=== PATIENT | female | born 1935 | race Caucasian/White ===

== ENCOUNTER 2016-12-27 17:57 | Emergency (ER) | payer OTHER ==
--- NOTE | 2016-12-27 19:57 | ED CLINICAL REPORT ---
Clinical Report - Physicians/Mid Levels [facility] [address] [place] [address] 12/27/2016 18:00 Patient: GISEL MENDOZA Time Seen: 18:26; initial patient contact, initial documentation, patient care assumed. Arrived- By private vehicle. Historian- patient. HISTORY OF PRESENT ILLNESS Chief Complaint: DYSURIA. This started about 1 weeks ago and still present. The symptoms are described as severe. Modifying factors- worsened by movement, coughing and urination. Not relieved by anything. The patient has had flank pain. No abdominal pain, pelvic pain, vaginal pain, low back pain or urinary frequency. No urgency of urination or hematuria. She has had pain with urination. Similar symptoms previously: Once, milder. Recent medical care: The patient was seen recently in the office. ( saw here pcp on Thursday, dx with uti, given abx, macrobid and pyridium, feels worse, now coughing, 1st uti was about a month ago, given macrobid, uti came right back and now placed on macrobid again, wondering why she was given same abx and not something new). REVIEW OF SYSTEMS No vomiting, diarrhea, difficulty breathing or chest pain. She has had fever (said she had fever and her temp was 97 and 98, explained this was completely normal). She has had a moderate cough productive of scant amounts of white sputum. generalized body aches. All systems otherwise negative, except as recorded above. PAST HISTORY See nurses notes. ( PROBLEMS: UTI - Urinary Tract Infection. Asthma. Hypertension. Hypercholesterolemia. Diabetes Mellitus. --18:22 Raul Sy R.N. Malignant Lymphoma. --18:22 Raul Sy R.N. ADDITIONAL SURGERIES: Hysterectomy. Lumpectomy of breast. --18:22 Raul Sy R.N.). SOCIAL HISTORY Former smoker. No alcohol use or drug use. No recent travel. Is a local resident. FAMILY HISTORY Negative. ADDITIONAL NOTES The nursing notes have been reviewed with agreement regarding the chief complaint, HPI, ROS, PMH and patient medications and allergies. PHYSICAL EXAM Vital Signs: 12/27/2016 18:14 BP: 160/95. HR: 114. RR: 22. O2 saturation: 96%. Temp: 98 F. Pain level now: 04/21. Have been reviewed as abnormal and appear to be correct. Hypertensive. Tachycardic. Respiratory rate normal. Temperature normal. Oxygen saturation normal. Appearance: Alert. Oriented X3. No acute distress. HEENT: Normal external inspection. ENT: Pharynx normal. Neck: Neck supple. CVS: Heart sounds normal. Respiratory: No respiratory distress. Breath sounds normal. Chest nontender. Abdomen: Soft and nontender. No organomegaly. No mass. Mildly obese. Back: Abnormal external inspection. Mild CVA tenderness on the right and left. Skin: Skin warm and dry. Normal skin color. No rash. Normal skin turgor. Extremities: Extremities nontender. No lower extremity edema. Neuro: Oriented X 3. Mood/affect normal. No motor deficit. No sensory deficit. LABS, X-RAYS, AND EKG Laboratory Tests: UA-Culture if indicated: (BRODIE: 12/27/2016 18:35) ( MsgRcvd 12/27/2016 19:23) Final results Test Result Flag Units (Reference) URINE COLOR YELLOW URINE APPEARANCE CLEAR URINE GLUCOSE TRACE (NEGATIVE) URINE BILIRUBIN NEGATIVE (NEGATIVE) URINE KETONE NEGATIVE (NEGATIVE) URINE SPECIFIC GRAVITY <= 1.005 L (1.010-1.030) URINE PH 6.0 (5.0-8.0) URINE PROTEIN 1+ (NEGATIVE) URINE UROBILINOGEN 1.0 EU/dL (0.2-1.0) URINE NITRITE POSITIVE (NEGATIVE) URINE BLOOD 1+ (NEGATIVE) URINE LEUK ESTERASE POSITIVE (NEGATIVE) URINE RBC 1-3 rbc/hpf (0-1) URINE WBC 75-100 wbc/hpf (0-1) URINE EPITHELIAL CELLS 3-5 EPI/hpf (0-5) URINE BACTERIA MODERATE (2+ TO 3+) (NONE SEEN) URINE COMMENT CULTURE INDICATED 1+ MUCUSURINE CULTURES ARE SET-UP BASED ON THE FOLLOWING CRITERIA:POSITIVE NITRITEPOSITIVE LEUKOCYTE ESTERASEGREATER THAN 10 WHITE BLOOD CELLSMODERATE (2+) OR GREATER BACTERIA CBC w Diff: (BRODIE: 12/27/2016 18:45) ( MsgRcvd 12/27/2016 19:40) Final results Test Result Flag Units (Reference) WHITE BLOOD COUNT 23.1 H K/uL (4.5-11.5) RED BLOOD COUNT 4.15 M/uL (4.00-5.20) HEMOGLOBIN 11.9 L gm/dL (12.0-16.0) HEMATOCRIT 37.3 % (36.0-46.0) MEAN CELL VOLUME 90 fL (80-100) MEAN CORPUSCULAR HGB 29 pg (26-34) MEAN CORPUSCULAR HGB CONC 32 g/dL (31-37) RED CELL DISTRIBUTION WIDTH 14.6 % (11.6-14.8) PLATELET COUNT 332 K/uL (150-400) POLY % 69 % (50-75) BAND % 16 H % (0-8) LYMPH 10 L % (25-40) MONO 5 % (3-14) EOSINOPHIL % 0 % (0-4) BASOPHIL % 0 % (0-2) METAMYELOCYTE % 0 % (0-1) MYELOCYTE 0 % (0-1) OTHER CELL TYPE 0 ANISOCYTOSIS 1+ CMP: (BRODIE: 12/27/2016 18:45) ( MsgRcvd 12/27/2016 19:27) Final results Test Result Flag Units (Reference) GLUCOSE 240 H mg/dL (70-110) BUN 22 H mg/dL (7-18) CREATININE 1.3 mg/dL (0.6-1.3) Estimated GFR 42.00 mL/min Estimated GFR- 50.90 mL/min Note: Persistent reduction over 3 months in eGFR<60 mL/min/1.73 m2 defines CKD. Patients with eGFR values>=60 mL/min/1.73 m2 may also have CKD if evidence ofpersistent proteinuria. Additional information may be foundat www.kidney.org. SODIUM 131 L mmol/L (136-145) POTASSIUM 5.1 mmol/L (3.5-5.1) CHLORIDE 96 L mmol/L (98-107) CARBON DIOXIDE 24 mmol/L (21-32) CALCIUM 9.7 mg/dL (8.5-10.1) TOTAL PROTEIN 8.6 H g/dL (6.4-8.2) ALBUMIN 2.7 L g/dL (3.3-5.0) BILIRUBIN, TOTAL 0.7 mg/dL (0.0-1.0) ALKALINE PHOSPHATASE 252 H U/L (46-116) AST (SGOT) 33 U/L (15-37) ALT (SGPT) 39 U/L (12-78) . PROGRESS AND PROCEDURES Course of Care: nurse informing me that pt refused xray because she did not want to stand, nurse asked if we could try portable, order changed results and tx options discussed, pt does not want to be admitted so agreed to try and tx it outpatient first and see pcp thursday, or return sooner if worse. 12/27/2016 19:12 BP: 124/92. HR: 109. O2 saturation: 94%. Pain level now: 8/10. Vital Signs: have been reviewed as abnormal and appear to be correct. Blood pressure normal. Tachycardic. Respiratory rate normal. Temperature normal. Oxygen saturation normal. Patient and family counseled in person regarding the patient's stable condition, test results and diagnosis. Differential Diagnosis: Other possible considerations: uti, pyelo, kidney disease, kidney stone, pneumonia, bronchitis, flu, uri. Above considerations are based on history, physical exam, reassessment, laboratory data and X-Ray data. Differential diagnosis was discussed with patient. Disposition: Discharged home in good and improved condition (19:57). Condition: good and stable. CLINICAL IMPRESSION 12/27/2016 19:58 BP: 124/92. HR: 104. RR: 17. O2 saturation: 97%. Pain level now: 7/10. Vital Signs: have been reviewed as normal and appear to be correct. Pyelonephritis INSTRUCTIONS Warnings: Further evaluation is necessary in order to recheck abnormal lab and assess the possibility of serious illness. It is very important to follow up with a physician. GENERAL WARNINGS: Return or contact your physician immediately if your condition worsens or changes unexpectedly, if not improving as expected, or if other problems arise. Specifically return if problem worsens. Prescription Medications: Zofran 4 mg: Take 1 orally every six hours as needed for nausea/vomiting. Dispense ten (10). No refills. Substitution is permissible. Levaquin 500 mg: take 1 tab orally every day for 7 days. No refills. [place] 5 mg / 325 mg tablets: take 1 to 2 orally every 6 hours as needed for pain. Dispense fifteen (15). No refills. Substitution is permissible. Toradol 10 mg tablets: Take 1 tablet orally every 6 hours as needed. Dispense fifteen (15). No refills. Substitution is permissible. Keflex 500 mg: take 1 capsule orally every 6 hours for 7 days. No refills. Substitution is permissible. Follow-up: Follow up with your doctor Thursday even if well. Call for an appointment. Summary of care provided to patient. Blood pressure screening was not performed during this visit because blood pressure screening was precluded by clinical urgency. Understanding of the discharge instructions verbalized by patient. (Electronically signed by Lorena Alcala A.R.N.P. 12/27/2016 22:38)
--- NOTE | 2016-12-27 19:58 | ED ORDER SUMMARY ---
..... Patient: GISEL MENDOZA OrderSheet [facility] VisitID: [id number] [place] [address] 81y, F Registration Date/Time: 12/27/2016 ORDER SHEET Weight: 75.7 kg (stated) Allergies: PCN, Sulfa Drugs GENERAL ORDERS: Chest 2V Urgent (18:32 12/27/2016 HBivens A.R.N.P.) (Ack 18:33 KHoerner) (19:20 HBivens A.R.N.P.) (Cancelled: Other19:20 HBivens A.R.N.P.) CBC w Diff Urgent (18:32 12/27/2016 HBivens A.R.N.P.) (Ack 18:33 BROOKEoerner) (18:45 MCook R.N.) CMP Urgent (18:32 12/27/2016 HBivens A.R.N.P.) (Ack 18:33 BROOKEoergisela) (18:45 MCook R.N.) UA-Culture if indicated Urgent (18:32 12/27/2016 HBivens A.R.N.P.) (Ack 18:33 BROOKEoerner) (18:45 MCook R.N.) Chest 1V Urgent (19:20 12/27/2016 HBivens A.R.N.P.) (Ack 19:22 AMcQuoid ER Tech1) (19:35 Josee) MEDICATION ORDERS: IV FLUIDS: Toradol IV 30 mg (NOW) (18:32 12/27/2016 HBivens A.R.N.P.) (18:51 MCook R.N.) IV Saline Lock (18:32 12/27/2016 HBivens A.R.N.P.) (18:46 MCook R.N.) IV NS : initial bolus 1000 mL (1000 mL/hr), then none - (NOW) (19:39 12/27/2016 HBivens A.R.N.P.) (Ack 19:46 KPage-Kuchan R.N.) (19:57 KPage-Kuchan R.N.) Levaquin IV 750 mg/150 mL (NOW) (19:39 12/27/2016 HBivens A.R.N.P.) (Ack 19:46 KPage-Kuchan R.N.) (19:58 KPage-Kuchan R.N.) Dilaudid IV 1 mg (HIGH ALERT MEDICATION, NOW) (20:02 12/27/2016 HBivens A.R.N.P.) (Ack 20:03 KPage-Kuchan R.N.) (20:20 KPage-Kuchan R.N.) Zofran IV 4 mg (NOW) (20:02 12/27/2016 HBivens A.R.N.P.) (Ack 20:03 KPage-Kuchan R.N.) (20:20 KPage-Kuchan R.N.) ORDER SHEET NOTES: [Electronically signed by Lorena AlcalaRStephyN.PStephy (22:38 12/27/2016)] [Electronically signed by Ailyn Fitzgerald R.N. (23:57 12/27/2016)] [Electronically locked/signed by Ailyn Fitzgerald R.N. (23:57 12/27/2016)]
--- NOTE | 2016-12-27 19:58 | ED NURSING NOTES ---
Clinical Report - Nurses [facility] [address] [place] [address] 12/27/2016 18:00 Patient: GISEL MENDOZA TRIAGE Triage time 18:14 Dec 27 2016. Acuity: LEVEL 3. Alert. No acute distress. DANIEL COMA SCORE: Daniel Coma Scale: 15- eyes open spontaneously (4); best verbal response- oriented x 4 (5); best motor response- obeys commands (6). --18:24 Raul Sy R.N. 18:14 12/27/16. BP: 160/95. HR: 114. RR: 22. O2 saturation: 96% on room air. Temp: 98 F. Pain level now: 04/21. --18:24 Raul Sy R.N. Chief Complaint: (pain). 19:10. --23:57 Ailyn Fitzgerald R.N. Weight: 75.7 kg stated. Height/Length: 66 inches Per Patient. BMI: 26.9. --18:13 Raul Sy R.N. Medications Pyridium Oral. --18:18 Raul Sy R.N. Nitrofurantoin Oral. --18:18 Raul Sy R.N. MetFORMIN HCl Oral. --18:18 Raul Sy R.N. Lisinopril Oral. --18:18 Raul Sy R.N. Lipitor Oral. --18:18 Raul Sy R.N. Glimepiride Oral. --18:19 Raul Sy R.N. Albuterol Sulfate HFA Inhalation. --18:21 Raul Sy R.N. Allergies PCN. Sulfa Drugs. --18:20 Raul Sy R.N. History Arrived by private vehicle. Historian: patient. Accompanied by family. Onset. (Thursday). ( Pt has been feeling unwell for some time. On Thursday she went to see her Dr and was dx with a UTI, placed on abx. Pt presents today states she is feeling worse, cannot specify her symptoms, in some mild respiratory distress and increased pain.). She has had weakness, a cough and difficulty breathing. Treatment STENOCAPTIONER: None. PAST MEDICAL HX: Immunizations: status is unknown. SOCIAL HX: Former smoker (quit 38 years ago). No alcohol use or drug use. 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 ABUSE ASSESSMENT: No report of abuse. SELF HARM ASSESSMENT: A self harm assessment was performed. The patient answered "no" to the question "Have you recently felt down, depressed, or hopeless?" and "Do you have thoughts of harming or killing yourself?". FALL RISK ASSESSMENT: Fall risk assessment completed. No fall risk identified. NUTRITIONAL RISK ASSESSMENT: The nutritional risk assessment revealed no deficiencies. FUNCTIONAL ASSESSMENT: Functional assessment: no impairments noted. LEARNING NEEDS ASSESSMENT: The learning needs assessment revealed no barriers. SKIN INTEGRITY ASSESSMENT: Skin integrity risk assessment completed. No skin integrity risk identified. --18:24 Raul Sy R.N. PROBLEMS: UTI - Urinary Tract Infection. Asthma. Hypertension. Hypercholesterolemia. Diabetes Mellitus. --18:22 Raul Sy R.N. Malignant Lymphoma. --18:22 Raul Sy R.N. ADDITIONAL SURGERIES: Hysterectomy. Lumpectomy of breast. --18:22 Raul Sy R.N. Assessment The patient states feels worse. --18:24 Raul Sy R.N. Interventions ID band on patient. To treatment room. --18:24 Raul Sy R.N. PHYSICAL ASSESSMENT To room via wheelchair. GENERAL / NEURO / PSYCH: Appears in distress. The patient is disoriented. Mood/affect abnormal (anxious, restless and frustrated). She has had weakness. RESPIRATORY: Mild respiratory distress. The patient can speak in full sentences. Expiratory bilateral wheezes posteriorly. CVS: Capillary refill less than 2 seconds. Pulses within normal limits. SKIN: Skin is warm and dry. --18:30 Raul Sy R.N. NURSING PROGRESS NOTES The plan of care for this patient has been created. Monitoring of patient in place. Patient gowned. Head of bed elevated. Reassurance given. Two patient identifiers checked. Call light placed in reach. Side rails up x 2. Bed placed in lowest position. Patient ready for evaluation- HOLTER TECHNICIAN notified. ( HOLTER TECHNICIAN at bedside assessing Pt. Visitor at bedside.). --18:30 Raul Sy R.N. 18:46 12/27/2016 Site #1 started via IV in the right wrist with an 22g angiocath, with aseptic technique and good blood return; one attempt. Blood drawn: rainbow set. Labeled in the presence of the patient and sent to the lab. Saline lock flushed with 10 mL saline. --18:46 Raul Sy R.N. 18:51 12/27/2016 Toradol IVP 30 mg given over 2 minute(s) via site #1. Allergies verified and confirmed 5 rights. IV patency established. IV site checked: no pain, redness, or swelling. IV flushed thoroughly pre- and post-medication administration. IVP given by RN. --18:51 Raul Sy R.N. Finger stick glucose: 242 mg/dL; performed by nurse. --18:51 Raul Sy R.N. ( Assisted Pt on/off commode, obtained UA, Pt back in bed, frequently repositioning but Pt remains uncomfortable, tearful.). --18:53 Raul Sy R.N. Care transferred and report given (to JONY Robertson). --19:08 Raul Sy R.N. 19:12 12/27/16. BP: 124/92. HR: 109. O2 saturation: 94% on room air. Pain level now: 8/10. --19:13 Raul Sy R.N. Care transferred and report received (from Raul BORGES). --19:16 Ailyn Fitzgerald R.N. 19:52 12/27/2016 Started bag #1 1000 mL IV Fluids IV NS (Saline); at 1000 mL/hr via site #1. Allergies verified and confirmed 5 rights. IV patency established. IV site checked: no pain, redness, or swelling. IV flushed thoroughly pre- and post-medication administration. --19:57 Zander Strauss R.N. 19:53 12/27/2016 Started 750 mg of Levaquin (Levofloxacin) IVPB in bag #1 150 mL; at 100 mL/hr via site #1 via IV pump. Allergies verified and confirmed 5 rights. IV patency established. IV site checked: no pain, redness, or swelling. IV flushed thoroughly pre- and post-medication administration. --19:58 Zander Strauss R.N. 19:58 12/27/16. BP: 124/92. HR: 104. RR: 17. O2 saturation: 97%. Pain level now: 01/19. --19:59 Zander Strauss R.N. ( pt c/o cont pain, requests "something else, I'm still hurting" will notify HOLTER TECHNICIAN). --19:59 Zander Strauss R.N. 20:14 12/27/2016 Dilaudid (HYDROmorphone HCl PF) IVP 1 mg given. via site #1. Allergies verified, confirmed 5 rights and sedative warning given to the patient. IV patency established. IV site checked: no pain, redness, or swelling. IV flushed thoroughly pre- and post-medication administration. IVP given by RN. --20:20 Zander Strauss R.N. 20:15 12/27/2016 Zofran (Ondansetron HCl) IVP 4 mg given. via site #1. Allergies verified and confirmed 5 rights. IV patency established. IV site checked: no pain, redness, or swelling. IV flushed thoroughly pre- and post-medication administration. IVP given by RN. --20:20 Zander Strauss R.N. late entry - 21:03. Patient and family informed about reason for wait and about plan of care. ( Patient moved up in bed for comfort.). --23:56 Ailyn Fitzgerald R.N. DISPOSITION / DISCHARGE 21:16 12/27/16. BP: 152/70. HR: 105. RR: 18. O2 saturation: 98%. Temp: 97.7 F. Pain level now: 12/20. --21:42 Ailyn Fitzgerald R.N. 21:32 12/27/2016 Levaquin IVPB Discontinued: bag #1 completed upon discharge. Total amount infused: 150 mL. IV patency established. IV site checked: no pain, redness, or swelling. IV flushed thoroughly. --23:54 Ailyn Fitzgerald R.N. 21:32 12/27/2016 IV Fluids IV NS Discontinued: bag #1 completed upon discharge. Total amount infused: 1000 mL. IV patency established. IV site checked: no pain, redness, or swelling. IV flushed thoroughly. --23:55 Ailyn Fitzgerald R.N. 21:37 12/27/2016 Site #1 removed upon discharge. Manual pressure and bandaid applied. --23:52 Ailyn Fitzgerald R.N. 21:40 12/27/2016 Dilaudid IVP Response: no adverse reaction pain is improving. The patient feels better. 12/27/2016 21:16 BP: 152/70. HR: 105. RR: 18. O2 saturation: 98%. Temp: 97.7 F. Pain level now: 12/20. --23:53 Ailyn Fitzgerald R.N. 21:40 12/27/2016 Zofran IVP Response: no adverse reaction pain is improving. The patient feels better. --23:54 Ailyn Fitzgerald R.N. 21:42 12/27/16. No learning barriers present. Discharge instructions provided and reviewed with the patient and spouse. Reviewed warnings. Reviewed medication(s). Treatments reviewed. Patient and spouse verbalized understanding. Written instructions provided in Slovak. The patient was discharged home and accompanied by spouse. She left the Emergency Department in a wheelchair and via private vehicle. Spouse driving. --21:42 Ailyn Fitzgerald R.N. Locked/Released at 12/27/2016 23:57 by Ailyn Fitzgerald R.N.
--- NOTE | 2016-12-27 19:58 | ED ORDER SUMMARY ---
..... Patient: GISEL MENDOZA OrderSheet [facility] VisitID: [id number] [place] [address] 81y, F Registration Date/Time: 12/27/2016 ORDER SHEET Weight: 75.7 kg (stated) Allergies: PCN, Sulfa Drugs GENERAL ORDERS: Chest 2V Urgent (18:32 12/27/2016 HBivens A.R.N.P.) (Ack 18:33 KHoerner) (19:20 HBivens A.R.N.P.) (Cancelled: Other19:20 HBivens A.R.N.P.) CBC w Diff Urgent (18:32 12/27/2016 HBivens A.R.N.P.) (Ack 18:33 BROOKEoerner) (18:45 MCook R.N.) CMP Urgent (18:32 12/27/2016 HBivens A.R.N.P.) (Ack 18:33 BROOKEoergisela) (18:45 MCook R.N.) UA-Culture if indicated Urgent (18:32 12/27/2016 HBivens A.R.N.P.) (Ack 18:33 BROOKEoerner) (18:45 MCook R.N.) Chest 1V Urgent (19:20 12/27/2016 HBivens A.R.N.P.) (Ack 19:22 AMcQuoid ER Tech1) (19:35 Josee) MEDICATION ORDERS: IV FLUIDS: Toradol IV 30 mg (NOW) (18:32 12/27/2016 HBivens A.R.N.P.) (18:51 MCook R.N.) IV Saline Lock (18:32 12/27/2016 HBivens A.R.N.P.) (18:46 MCook R.N.) IV NS : initial bolus 1000 mL (1000 mL/hr), then none - (NOW) (19:39 12/27/2016 HBivens A.R.N.P.) (Ack 19:46 KPage-Kuchan R.N.) (19:57 KPage-Kuchan R.N.) Levaquin IV 750 mg/150 mL (NOW) (19:39 12/27/2016 HBivens A.R.N.P.) (Ack 19:46 KPage-Kuchan R.N.) (19:58 KPage-Kuchan R.N.) Dilaudid IV 1 mg (HIGH ALERT MEDICATION, NOW) (20:02 12/27/2016 HBivens A.R.N.P.) (Ack 20:03 KPage-Kuchan R.N.) (20:20 KPage-Kuchan R.N.) Zofran IV 4 mg (NOW) (20:02 12/27/2016 HBivens A.R.N.P.) (Ack 20:03 KPage-Kuchan R.N.) (20:20 KPage-Kuchan R.N.) ORDER SHEET NOTES: [Electronically signed by Lorena AlcalaRStephyN.PStephy (22:38 12/27/2016)] [Electronically signed by Ailyn Fitzgerald R.N. (23:57 12/27/2016)] [Electronically locked/signed by Ailyn Fitzgerald R.N. (23:57 12/27/2016)]
--- NOTE | 2016-12-27 19:58 | ED NURSING NOTES ---
Clinical Report - [facility] [address] [place] [address] 12/27/2016 18:00 Patient: GISEL MENDOZA TRIAGE Triage time 18:14 Dec 27 2016. Acuity: LEVEL 3. Alert. No acute distress. DANIEL COMA SCORE: Daniel Coma Scale: 15- eyes open spontaneously (4); best verbal response- oriented x 4 (5); best motor response- obeys commands (6). --18:24 Raul Sy R.N. 18:14 12/27/16. BP: 160/95. HR: 114. RR: 22. O2 saturation: 96% on room air. Temp: 98 F. Pain level now: 04/21. --18:24 Raul Sy R.N. Chief Complaint: (pain). 19:10. --23:57 Ailyn Fitzgerald R.N. Weight: 75.7 kg stated. Height/Length: 66 inches Per Patient. BMI: 26.9. --18:13 Raul Sy R.N. Medications Pyridium Oral. --18:18 Raul Sy R.N. Nitrofurantoin Oral. --18:18 Raul Sy R.N. MetFORMIN HCl Oral. --18:18 Raul Sy R.N. Lisinopril Oral. --18:18 Raul Sy R.N. Lipitor Oral. --18:18 Raul Sy R.N. Glimepiride Oral. --18:19 Raul Sy R.N. Albuterol Sulfate HFA Inhalation. --18:21 Raul Sy R.N. Allergies PCN. Sulfa Drugs. --18:20 Raul Sy R.N. History Arrived by private vehicle. Historian: patient. Accompanied by family. Onset. (Thursday). ( Pt has been feeling unwell for some time. On Thursday she went to see her Dr and was dx with a UTI, placed on abx. Pt presents today states she is feeling worse, cannot specify her symptoms, in some mild respiratory distress and increased pain.). She has had weakness, a cough and difficulty breathing. Treatment FURNACE INSTALLER: None. PAST MEDICAL HX: Immunizations: status is unknown. SOCIAL HX: Former smoker (quit 38 years ago). No alcohol use or drug use. 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 ABUSE ASSESSMENT: No report of abuse. SELF HARM ASSESSMENT: A self harm assessment was performed. The patient answered "no" to the question "Have you recently felt down, depressed, or hopeless?" and "Do you have thoughts of harming or killing yourself?". FALL RISK ASSESSMENT: Fall risk assessment completed. No fall risk identified. NUTRITIONAL RISK ASSESSMENT: The nutritional risk assessment revealed no deficiencies. FUNCTIONAL ASSESSMENT: Functional assessment: no impairments noted. LEARNING NEEDS ASSESSMENT: The learning needs assessment revealed no barriers. SKIN INTEGRITY ASSESSMENT: Skin integrity risk assessment completed. No skin integrity risk identified. --18:24 Raul Sy R.N. PROBLEMS: UTI - Urinary Tract Infection. Asthma. Hypertension. Hypercholesterolemia. Diabetes Mellitus. --18:22 Raul Sy R.N. Malignant Lymphoma. --18:22 aRul Sy R.N. ADDITIONAL SURGERIES: Hysterectomy. Lumpectomy of breast. --18:22 Raul Sy R.N. Assessment The patient states feels worse. --18:24 Raul Sy R.N. Interventions ID band on patient. To treatment room. --18:24 Raul Sy R.N. PHYSICAL ASSESSMENT To room via wheelchair. GENERAL / NEURO / PSYCH: Appears in distress. The patient is disoriented. Mood/affect abnormal (anxious, restless and frustrated). She has had weakness. RESPIRATORY: Mild respiratory distress. The patient can speak in full sentences. Expiratory bilateral wheezes posteriorly. CVS: Capillary refill less than 2 seconds. Pulses within normal limits. SKIN: Skin is warm and dry. --18:30 Raul Sy R.N. NURSING PROGRESS NOTES The plan of care for this patient has been created. Monitoring of patient in place. Patient gowned. Head of bed elevated. Reassurance given. Two patient identifiers checked. Call light placed in reach. Side rails up x 2. Bed placed in lowest position. Patient ready for evaluation- WINEMAKER notified. ( WINEMAKER at bedside assessing Pt. Visitor at bedside.). --18:30 Raul Sy R.N. 18:46 12/27/2016 Site #1 started via IV in the right wrist with an 22g angiocath, with aseptic technique and good blood return; one attempt. Blood drawn: rainbow set. Labeled in the presence of the patient and sent to the lab. Saline lock flushed with 10 mL saline. --18:46 Raul Sy R.N. 18:51 12/27/2016 Toradol IVP 30 mg given over 2 minute(s) via site #1. Allergies verified and confirmed 5 rights. IV patency established. IV site checked: no pain, redness, or swelling. IV flushed thoroughly pre- and post-medication administration. IVP given by RN. --18:51 Raul Sy R.N. Finger stick glucose: 242 mg/dL; performed by nurse. --18:51 Raul Sy R.N. ( Assisted Pt on/off commode, obtained UA, Pt back in bed, frequently repositioning but Pt remains uncomfortable, tearful.). --18:53 Raul Sy R.N. Care transferred and report given (to JONY Robertson). --19:08 Raul Sy R.N. 19:12 12/27/16. BP: 124/92. HR: 109. O2 saturation: 94% on room air. Pain level now: 8/10. --19:13 Raul Sy R.N. Care transferred and report received (from Raul BORGES). --19:16 Ailyn Fitzgerald R.N. 19:52 12/27/2016 Started bag #1 1000 mL IV Fluids IV NS (Saline); at 1000 mL/hr via site #1. Allergies verified and confirmed 5 rights. IV patency established. IV site checked: no pain, redness, or swelling. IV flushed thoroughly pre- and post-medication administration. --19:57 Zander Strauss R.N. 19:53 12/27/2016 Started 750 mg of Levaquin (Levofloxacin) IVPB in bag #1 150 mL; at 100 mL/hr via site #1 via IV pump. Allergies verified and confirmed 5 rights. IV patency established. IV site checked: no pain, redness, or swelling. IV flushed thoroughly pre- and post-medication administration. --19:58 Zander Strauss R.N. 19:58 12/27/16. BP: 124/92. HR: 104. RR: 17. O2 saturation: 97%. Pain level now: 01/19. --19:59 Zander Strauss R.N. ( pt c/o cont pain, requests "something else, I'm still hurting" will notify WINEMAKER). --19:59 Zander Strauss R.N. 20:14 12/27/2016 Dilaudid (HYDROmorphone HCl PF) IVP 1 mg given. via site #1. Allergies verified, confirmed 5 rights and sedative warning given to the patient. IV patency established. IV site checked: no pain, redness, or swelling. IV flushed thoroughly pre- and post-medication administration. IVP given by RN. --20:20 Zander Strauss R.N. 20:15 12/27/2016 Zofran (Ondansetron HCl) IVP 4 mg given. via site #1. Allergies verified and confirmed 5 rights. IV patency established. IV site checked: no pain, redness, or swelling. IV flushed thoroughly pre- and post-medication administration. IVP given by RN. --20:20 Zander Strauss R.N. late entry - 21:03. Patient and family informed about reason for wait and about plan of care. ( Patient moved up in bed for comfort.). --23:56 Ailyn Fitzgerald R.N. DISPOSITION / DISCHARGE 21:16 12/27/16. BP: 152/70. HR: 105. RR: 18. O2 saturation: 98%. Temp: 97.7 F. Pain level now: 12/20. --21:42 Ailyn Fitzgerald R.N. 21:32 12/27/2016 Levaquin IVPB Discontinued: bag #1 completed upon discharge. Total amount infused: 150 mL. IV patency established. IV site checked: no pain, redness, or swelling. IV flushed thoroughly. --23:54 Ailyn Fitzgerald R.N. 21:32 12/27/2016 IV Fluids IV NS Discontinued: bag #1 completed upon discharge. Total amount infused: 1000 mL. IV patency established. IV site checked: no pain, redness, or swelling. IV flushed thoroughly. --23:55 Ailyn Fitzgerald R.N. 21:37 12/27/2016 Site #1 removed upon discharge. Manual pressure and bandaid applied. --23:52 Ailyn Fitzgerald R.N. 21:40 12/27/2016 Dilaudid IVP Response: no adverse reaction pain is improving. The patient feels better. 12/27/2016 21:16 BP: 152/70. HR: 105. RR: 18. O2 saturation: 98%. Temp: 97.7 F. Pain level now: 12/20. --23:53 Ailyn Fitzgerald R.N. 21:40 12/27/2016 Zofran IVP Response: no adverse reaction pain is improving. The patient feels better. --23:54 Ailyn Fitzgerald R.N. 21:42 12/27/16. No learning barriers present. Discharge instructions provided and reviewed with the patient and spouse. Reviewed warnings. Reviewed medication(s). Treatments reviewed. Patient and spouse verbalized understanding. Written instructions provided in Irish. The patient was discharged home and accompanied by spouse. She left the Emergency Department in a wheelchair and via private vehicle. Spouse driving. --21:42 Ailyn Fitzgerald R.N. Locked/Released at 12/27/2016 23:57 by Ailyn Fitzgerald R.N.
--- NOTE | 2016-12-27 20:20 | DIAGNOSTIC IMAGING REPORT ---
PROCEDURE: XR CHEST 1 VIEW INDICATION: COUGH TECHNIQUE: Portable AP view 07:32 p.m. COMPARISON: None. FINDINGS: Moderate elevation of the right hemidiaphragm. Lungs are clear. Mild cardiomegaly. Mediastinum and pulmonary vascularity are normal. Chronic bilateral rotator cuff tears. IMPRESSION: 1. No acute changes 2. Elevated right hemidiaphragm 3. Cardiomegaly
--- NOTE | 2016-12-27 23:58 | ED DISCHARGE INSTRUCTIONS ---
Patient: GISEL MENDOZA General Instructions [facility] VisitID: [id number] [place] [address] 81y, F Registration Date/Time: 12/27/2016 12/27/2016 19:58 BP: 124/92. HR: 104. RR: 17. O2 saturation: 97%. Pain level now: 01/19. Vital Signs: have been reviewed as normal and appear to be correct. Pyelonephritis INSTRUCTIONS Warnings: Further evaluation is necessary in order to recheck abnormal lab and assess the possibility of serious illness. It is very important to follow up with a physician. GENERAL WARNINGS: Return or contact your physician immediately if your condition worsens or changes unexpectedly, if not improving as expected, or if other problems arise. Specifically return if problem worsens. Prescription Medications: Zofran 4 mg: Take 1 orally every six hours as needed for nausea/vomiting. Dispense ten (10). No refills. Substitution is permissible. Levaquin 500 mg: take 1 tab orally every day for 7 days. No refills. [place] 5 mg / 325 mg tablets: take 1 to 2 orally every 6 hours as needed for pain. Dispense fifteen (15). No refills. Substitution is permissible. Toradol 10 mg tablets: Take 1 tablet orally every 6 hours as needed. Dispense fifteen (15). No refills. Substitution is permissible. Keflex 500 mg: take 1 capsule orally every 6 hours for 7 days. No refills. Substitution is permissible. Follow-up: Follow up with your doctor Thursday even if well. Call for an appointment. Summary of care provided to patient. Blood pressure screening was not performed during this visit because blood pressure screening was precluded by clinical urgency. Understanding of the discharge instructions verbalized by patient. ADDITIONAL INFORMATION Kidney Infection [Adult, Female] An infection of the kidney is also called "pyelonephritis". It usually starts as a bladder infection ("cystitis") which spreads to the kidneys. Pyelonephritis is more serious than a bladder infection. It can cause severe illness if not treated properly. The usual symptoms include an aching pain in the back, side or lower abdomen. Other symptoms may include fever, chills, nausea, vomiting, an urge to urinate and a burning sensation when passing urine. Home Care: Stay home from work or school. Rest in bed until your fever breaks and you are feeling better. Drink lots of fluid (at least 6-8 glasses a day, unless you must restrict fluids for other medical reasons). This will force the medicine into your urinary system and flush the bacteria out of your body. Avoid sexual intercourse until you have finished all of your medicine and your symptoms have gone away. Avoid caffeine, alcohol and spicy foods which may irritate the kidney and bladder. You may use acetaminophen (Tylenol) or ibuprofen (Motrin, Advil) to control pain, unless another pain medicine was prescribed. [NOTE: If you have chronic liver or kidney disease or ever had a stomach ulcer or GI bleeding, talk with your doctor before using these medicines.] Follow Up with your doctor or as advised by our staff for a repeat urine test in 10 days. This will ensure that your infection is fully cleared. [NOTE: If you had an X-ray or CT scan, it will be reviewed by a specialist. You will be notified of any new findings that may affect your care.] Get Prompt Medical Attention if any of the following occur: Fever over 100.4F (38.0C) after 48 hours of treatment No improvement by the third day of treatment Increasing back or abdominal pain Repeated vomiting or inability to take oral medicine Weakness, dizziness or fainting Ondansetron Oral disintegrating tablet What is this medicine? ONDANSETRON (on NILDA se livia) is used to treat nausea and vomiting caused by chemotherapy. It is also used to prevent or treat nausea and vomiting after surgery. How should I use this medicine? These tablets are made to dissolve in the mouth. Do not try to push the tablet through the foil backing. With dry hands, peel away the foil backing and gently remove the tablet. Place the tablet in the mouth and allow it to dissolve, then swallow. While you may take these tablets with water, it is not necessary to do so. Talk to your rehab department manager regarding the use of this medicine in children. Special care may be needed. What side effects may I notice from receiving this medicine? Side effects that you should report to your doctor or health intensive care medicine specialist as soon as possible: allergic reactions like skin rash, itching or hives, swelling of the face, lips, or tongue breathing problems dizziness fast or irregular heartbeat feeling faint or lightheaded, falls fever and chills swelling of the hands and feet tightness in the chest Side effects that usually do not require medical attention (report to your doctor or health intensive care medicine specialist if they continue or are bothersome): constipation or diarrhea headache What may interact with this medicine? Do not take this medicine with any of the following medications: -apomorphine -cisapride -dofetilide -dronedarone -pimozide -thioridazine -ziprasidone This medicine may also interact with the following medications: -carbamazepine -phenytoin -rifampicin -tramadol -other medicines that prolong the QT interval (cause an abnormal heart rhythm) What if I miss a dose? If you miss a dose, take it as soon as you can. If it is almost time for your next dose, take only that dose. Do not take double or extra doses. Where should I keep my medicine? Keep out of the reach of children. Store between 2 and 30 degrees C (36 and 86 degrees F). Throw away any unused medicine after the expiration date. What should I tell my health care provider before I take this medicine? They need to know if you have any of these conditions: heart disease history of irregular heartbeat liver disease low levels of magnesium or potassium in the blood an unusual or allergic reaction to ondansetron, granisetron, other medicines, foods, dyes, or preservatives or trying to get breast-feeding What should I watch for while using this medicine? Check with your doctor or health intensive care medicine specialist as soon as you can if you have any sign of an allergic reaction. Levofloxacin Oral tablet What is this medicine? LEVOFLOXACIN (darron mckinney) is a quinolone antibiotic. It is used to treat certain kinds of bacterial infections. It will not work for colds, flu, or other viral infections. How should I use this medicine? Take this medicine by mouth with a full glass of water. Follow the directions on the prescription label. This medicine can be taken with or without food. Take your medicine at regular intervals. Do not take your medicine more often than directed. Do not skip doses or stop your medicine early even if you feel better. Do not stop taking except on your doctor's advice. A special MedGuide will be given to you by the pharmacist with each prescription and refill. Be sure to read this information carefully each time. Talk to your rehab department manager regarding the use of this medicine in children. While this drug may be prescribed for children as young as 6 months for selected conditions, precautions do apply. What side effects may I notice from receiving this medicine? Side effects that you should report to your doctor or health intensive care medicine specialist as soon as possible: -allergic reactions like skin rash or hives, swelling of the face, lips, or tongue -changes in vision -confusion, nightmares or hallucinations -difficulty breathing -irregular heartbeat, chest pain -joint, muscle or tendon pain -pain or difficulty passing urine -persistent headache with or without blurred vision -redness, blistering, peeling or loosening of the skin, including inside the mouth -seizures -unusual pain, numbness, tingling, or weakness -vaginal irritation, discharge Side effects that usually do not require medical attention (report to your doctor or health intensive care medicine specialist if they continue or are bothersome): -diarrhea -dry mouth -headache -stomach upset, nausea -trouble sleeping What may interact with this medicine? Do not take this medicine with any of the following medications: - arsenic trioxide - chloroquine - droperidol - medicines for irregular heart rhythm like amiodarone, disopyramide, dofetilide, flecainide, quinidine, procainamide, sotalol - some medicines for depression or mental problems like phenothiazines, pimozide, and ziprasidone This medicine may also interact with the following medications: - amoxapine -antacids - cisapride - dairy products - didanosine (ddI) buffered tablets or powder - haloperidol - multivitamins -NSAIDS, medicines for pain and inflammation, like ibuprofen or naproxen - retinoid products like tretinoin or isotretinoin - risperidone - some other antibiotics like clarithromycin or erythromycin - sucralfate - theophylline - warfarin What if I miss a dose? If you miss a dose, take it as soon as you remember. If it is almost time for your next dose, take only that dose. Do not take double or extra doses. Where should I keep my medicine? Keep out of the reach of children. Store at room temperature between 15 and 30 degrees C (59 and 86 degrees F). Keep in a tightly closed container. Throw away any unused medicine after the expiration date. What should I tell my health care provider before I take this medicine? They need to know if you have any of these conditions: cerebral disease irregular heartbeat kidney disease seizure disorder an unusual or allergic reaction to levofloxacin, other antibiotics or medicines, foods, dyes, or preservatives or trying to get breast-feeding What should I watch for while using this medicine? Tell your doctor or health intensive care medicine specialist if your symptoms do not improve or if they get worse. Drink several glasses of water a day and cut down on drinks that contain caffeine. You must not get dehydrated while taking this medicine. You may get drowsy or dizzy. Do not drive, use machinery, or do anything that needs mental alertness until you know how this medicine affects you. Do not sit or stand up quickly, especially if you are an older patient. This reduces the risk of dizzy or fainting spells. This medicine can make you more sensitive to the sun. Keep out of the sun. If you cannot avoid being in the sun, wear protective clothing and use a sunscreen. Do not use sun lamps or tanning beds/booths. Contact your doctor if you get a sunburn. If you are a diabetic monitor your blood glucose carefully. If you get an unusual reading stop taking this medicine and call your doctor right away. Do not treat diarrhea with [id number] products. Contact your doctor if you have diarrhea that lasts more than 2 days or if the diarrhea is severe and watery. Avoid antacids, calcium, iron, and zinc products for 2 hours before and 2 hours after taking a dose of this medicine. Hydrocodone Bitartrate, Acetaminophen Oral tablet What is this medicine? ACETAMINOPHEN; HYDROCODONE (a set a MELANIE raj fen; alcides droe KOE done) is a pain reliever. It is used to treat mild to moderate pain. How should I use this medicine? Take this medicine by mouth. Swallow it with a full glass of water. Follow the directions on the prescription label. If the medicine upsets your stomach, take the medicine with food or milk. Do not take more than you are told to take. Talk to your rehab department manager regarding the use of this medicine in children. This medicine is not approved for use in children. What side effects may I notice from receiving this medicine? Side effects that you should report to your doctor or health intensive care medicine specialist as soon as possible: allergic reactions like skin rash, itching or hives, swelling of the face, lips, or tongue breathing problems confusion feeling faint or lightheaded, falls stomach pain yellowing of the eyes or skin Side effects that usually do not require medical attention (report to your doctor or health intensive care medicine specialist if they continue or are bothersome): nausea, vomiting stomach upset What may interact with this medicine? alcohol antihistamines isoniazid medicines for depression, anxiety, or psychotic disturbances medicines for sleep muscle relaxants naltrexone narcotic medicines (opiates) for pain phenobarbital ritonavir tramadol What if I miss a dose? If you miss a dose, take it as soon as you can. If it is almost time for your next dose, take only that dose. Do not take double or extra doses. Where should I keep my medicine? Keep out of the reach of children. This medicine can be abused. Keep your medicine in a safe place to protect it from theft. Do not share this medicine with anyone. Selling or giving away this medicine is dangerous and against the law. Store at room temperature between 15 and 30 degrees C (59 and 86 degrees F). Protect from light. Keep container tightly closed. Throw away any unused medicine after the expiration date. Discard unused medicine and used packaging carefully. Pets and children can be harmed if they find used or lost packages. What should I tell my health care provider before I take this medicine? They need to know if you have any of these conditions: brain tumor Crohn's disease, inflammatory bowel disease, or ulcerative colitis drink more than 3 alcohol-containing drinks per day drug abuse or addiction head injury heart or circulation problems kidney disease or problems going to the bathroom liver disease lung disease, asthma, or breathing problems an unusual or allergic reaction to acetaminophen, hydrocodone, other opioid analgesics, other medicines, foods, dyes, or preservatives or trying to get breast-feeding What should I watch for while using this medicine? Tell your doctor or health intensive care medicine specialist if your pain does not go away, if it gets worse, or if you have new or a different type of pain. You may develop tolerance to the medicine. Tolerance means that you will need a higher dose of the medicine for pain relief. Tolerance is normal and is expected if you take the medicine for a long time. Do not suddenly stop taking your medicine because you may develop a severe reaction. Your body becomes used to the medicine. This does NOT mean you are addicted. Addiction is a behavior related to getting and using a drug for a non-medical reason. If you have pain, you have a medical reason to take pain medicine. Your doctor will tell you how much medicine to take. If your doctor wants you to stop the medicine, the dose will be slowly lowered over time to avoid any side effects. You may get drowsy or dizzy when you first start taking the medicine or change doses. Do not drive, use machinery, or do anything that may be dangerous until you know how the medicine affects you. Stand or sit up slowly. There are different types of narcotic medicines (opiates) for pain. If you take more than one type at the same time, you may have more side effects. Give your health care provider a list of all medicines you use. Your doctor will tell you how much medicine to take. Do not take more medicine than directed. Call emergency for help if you have problems breathing. The medicine will cause constipation. Try to have a bowel movement at least every 2 to 3 days. If you do not have a bowel movement for 3 days, call your doctor or health intensive care medicine specialist. Too much acetaminophen can be very dangerous. Do not take Tylenol (acetaminophen) or medicines that contain acetaminophen with this medicine. Many non-prescription medicines contain acetaminophen. Always read the labels carefully. Ketorolac Tromethamine Oral tablet What is this medicine? KETOROLAC (madalyn toe ROLE ak) is a non-steroidal anti-inflammatory drug (NSAID). It is used for a short while to treat moderate to severe pain, including pain after surgery. It should not be used for more than 5 days. How should I use this medicine? Take this medicine by mouth with a full glass of water. Follow the directions on the prescription label. Take your medicine at regular intervals. Do not take your medicine more often than directed. Do not take more than the recommended dose. A special MedGuide will be given to you by the pharmacist with each prescription and refill. Be sure to read this information carefully each time. Talk to your rehab department manager regarding the use of this medicine in children. While this drug may be prescribed for children as young as 16 years of age for selected conditions, precautions do apply. Patients over 65 years old may have a stronger reaction and need a smaller dose. What side effects may I notice from receiving this medicine? Side effects that you should report to your doctor or health intensive care medicine specialist as soon as possible: allergic reactions like skin rash, itching or hives, swelling of the face, lips, or tongue black or tarry stools breathing problems changes in vision chest pain high blood pressure nausea or vomiting redness, blistering, peeling or loosening of the skin, including inside the mouth severe abdominal pain slurred speech or weakness on one side of the body unexplained weight gain or swelling unusual bleeding or bruising unusually weak or tired yellowing of eyes or skin Side effects that usually do not require medical attention (report to your doctor or health intensive care medicine specialist if they continue or are bothersome): diarrhea dizziness headache heartburn What may interact with this medicine? Do not take this medicine with any of the following medications: aspirin and aspirin-like medicines cidofovir methotrexate NSAIDs, medicines for pain and inflammation, like ibuprofen or naproxen pemetrexed probenecid This medicine may also interact with the following medications: alcohol alendronate alprazolam carbamazepine cyclosporine diuretics flavocoxid fluoxetine ginkgo lithium medicines for high blood pressure like enalapril medicines that affect platelets like pentoxifylline medicines that treat or prevent blood clots like heparin, warfarin muscle relaxants phenytoin steroid medicines like prednisone or cortisone thiothixene What if I miss a dose? If you miss a dose, take it as soon as you can. If it is almost time for your next dose, take only that dose. Do not take double or extra doses. Where should I keep my medicine? Keep out of the reach of children. Store at room temperature between 20 and 25 degrees C (68 and 77 degrees F). Throw away any unused medicine after the expiration date. What should I tell my health care provider before I take this medicine? They need to know if you have any of these conditions: asthma bleeding problems like hemophilia cigarette smoker drink more than 3 alcohol containing drinks a day heart disease or circulation problems such as heart failure or leg edema (fluid retention) high blood pressure kidney disease liver disease stomach bleeding or ulcers an unusual or allergic reaction to ketorolac, aspirin, other NSAIDs, other medicines, foods, dyes, or preservatives or trying to get breast-feeding What should I watch for while using this medicine? Tell your doctor or health intensive care medicine specialist if your pain does not get better. Talk to your doctor before taking another medicine for pain. Do not treat yourself. This medicine does not prevent heart attack or stroke. In fact, this medicine may increase the chance of a heart attack or stroke. The chance may increase with longer use of this medicine and in people who have heart disease. If you take aspirin to prevent heart attack or stroke, talk with your doctor or health intensive care medicine specialist. Do not take medicines such as ibuprofen and naproxen with this medicine. Side effects such as stomach upset, nausea, or ulcers may be more likely to occur. Many medicines available without a prescription should not be taken with this medicine. This medicine can cause ulcers and bleeding in the stomach and intestines at any time during treatment. Do not smoke cigarettes or drink alcohol. These increase irritation to your stomach and can make it more susceptible to damage from this medicine. Ulcers and bleeding can happen without warning symptoms and can cause . You may get drowsy or dizzy. Do not drive, use machinery, or do anything that needs mental alertness until you know how this medicine affects you. Do not stand or sit up quickly, especially if you are an older patient. This reduces the risk of dizzy or fainting spells. This medicine can cause you to bleed more easily. Try to avoid damage to your teeth and gums when you brush or floss your teeth. Cephalexin Monohydrate Oral tablet What is this medicine? CEPHALEXIN (sef a DAYANA in) is a cephalosporin antibiotic. It is used to treat certain kinds of bacterial infections It will not work for colds, flu, or other viral infections. How should I use this medicine? Take this medicine by mouth with a full glass of water. Follow the directions on the prescription label. This medicine can be taken with or without food. Take your medicine at regular intervals. Do not take your medicine more often than directed. Take all of your medicine as directed even if you think you are better. Do not skip doses or stop your medicine early. Talk to your rehab department manager regarding the use of this medicine in children. While this drug may be prescribed for selected conditions, precautions do apply. What side effects may I notice from receiving this medicine? Side effects that you should report to your doctor or health intensive care medicine specialist as soon as possible: allergic reactions like skin rash, itching or hives, swelling of the face, lips, or tongue breathing problems pain or trouble passing urine redness, blistering, peeling or loosening of the skin, including inside the mouth severe or watery diarrhea unusually weak or tired yellowing of the eyes, skin Side effects that usually do not require medical attention (report to your doctor or health intensive care medicine specialist if they continue or are bothersome): gas or heartburn genital or anal irritation headache joint or muscle pain nausea, vomiting What may interact with this medicine? probenecid some other antibiotics What if I miss a dose? If you miss a dose, take it as soon as you can. If it is almost time for your next dose, take only that dose. Do not take double or extra doses. There should be at least 4 to 6 hours between doses. Where should I keep my medicine? Keep out of the reach of children. Store at room temperature between 59 and 86 degrees F (15 and 30 degrees C). Throw away any unused medicine after the expiration date. What should I tell my health care provider before I take this medicine? They need to know if you have any of these conditions: kidney disease stomach or intestine problems, especially colitis an unusual or allergic reaction to cephalexin, other cephalosporins, penicillins, other antibiotics, medicines, foods, dyes or preservatives or trying to get breast-feeding What should I watch for while using this medicine? Tell your doctor or health intensive care medicine specialist if your symptoms do not begin to improve in a few days. Do not treat diarrhea with over the counter products. Contact your doctor if you have diarrhea that lasts more than 2 days or if it is severe and watery. If you have diabetes, you may get a false-positive result for sugar in your urine. Check with your doctor or health intensive care medicine specialist. You have been given the following additional information: Pyelonephritis, Female (Adult) Ondansetron Oral disintegrating tablet Levofloxacin Oral tablet Hydrocodone Bitartrate, Acetaminophen Oral tablet Ketorolac Tromethamine Oral tablet Cephalexin Monohydrate Oral tablet (Electronically signed by Lorena Alcala A.R.N.P. 12/27/2016 22:38)
--- NOTE | 2016-12-27 23:58 | ED MAR SUMMARY ---
..... Medication Administration Record [facility] [address] [place] [address] Patient: GISEL MENDOZA Visit ID: [id number] 81y, F Weight: 75.7 kg Height/Length: 66 in BMI: 26.9 ALLERGIES: PCN, Sulfa Drugs Given 18:51 12/27/2016 Raul Sy R.N. Medication Administered: TORADOL [IVP], Dose: 30 mg IVP over 2 minute(s), Site: #1 right wrist. Medication Ordered: Toradol IV 30 mg (NOW). Start 19:52 12/27/2016 Zander Strauss R.N., Stop 21:32 12/27/2016 Ailyn Fitzgerald R.N. Medication Administered: IV NS (SALINE), Dose: IV Fluids, Rate: 1000 mL/hr, Dispensed: 1000 mL bag, Site: #1 right wrist. Medication Ordered: IV NS : initial bolus 1000 mL (1000 mL/hr), then none - (NOW). Start 19:53 12/27/2016 Zander Strauss R.N., Stop 21:32 12/27/2016 Ailyn Fitzgerald R.N. Medication Administered: LEVAQUIN [IVPB] (LEVOFLOXACIN), Dose: 750 mg IVPB, Rate: 100 mL/hr, Dispensed: 150 mL bag, Site: #1 right wrist. Medication Ordered: Levaquin IV 750 mg/150 mL (NOW). Given 20:14 12/27/2016 Zander Strauss R.N. Medication Administered: DILAUDID [IVP] (HYDROMORPHONE HCL PF), Dose: 1 mg IVP, Site: #1 right wrist. Medication Ordered: Dilaudid IV 1 mg (HIGH ALERT MEDICATION, NOW). Given 20:15 12/27/2016 Zander Strauss R.N. Medication Administered: ZOFRAN [IVP] (ONDANSETRON HCL), Dose: 4 mg IVP, Site: #1 right wrist. Medication Ordered: Zofran IV 4 mg (NOW).
--- NOTE | 2016-12-27 23:58 | ED MED RECONCILIATION SUMMARY ---
Patient: GISEL MENDOZA Medication Reconciliation Report [facility] VisitID: [id number] [place] [address] 81y, F Registration Date/Time: 12/27/2016 Weight: 75.7 kg Height/Length: 66 in. BMI: 26.9 ALLERGIES: PCN, Sulfa Drugs The patient's Home Medications are listed below: THE FOLLOWING MEDICATIONS NEED TO BE RECONCILED: Albuterol Sulfate HFA Inhalation Glimepiride Oral Lipitor Oral Lisinopril Oral MetFORMIN HCl Oral Nitrofurantoin Oral Pyridium Oral The source(s) of the original Home Medication information: Not obtained. The following Medications were given to the patient in the Emergency Department: Toradol [IVP] IVP 30 mg, administered: 12/27/2016 6:51:00 PM IV NS IV Fluids bolus 0, then 1000 mL/hr, administered: 12/27/2016 7:52:00 PM Levaquin [IVPB] IVPB bolus 0, then 750 mg 100 mL/hr, administered: 12/27/2016 7:53:00 PM Dilaudid [IVP] IVP 1 mg, administered: 12/27/2016 8:14:00 PM Zofran [IVP] IVP 4 mg, administered: 12/27/2016 8:15:00 PM The following Medications were prescribed to the patient: Zofran 4 mg: Take 1 orally every six hours as needed for nausea/vomiting. Dispense ten (10). No refills. Substitution is permissible. -- Lorena Alcala A.R.N.P. Levaquin 500 mg: take 1 tab orally every day for 7 days. No refills. -- Lorena Alcala A.R.N.P. [place] 5 mg / 325 mg tablets: take 1 to 2 orally every 6 hours as needed for pain. Dispense fifteen (15). No refills. Substitution is permissible. -- Lorena Alcala A.R.N.P. Toradol 10 mg tablets: Take 1 tablet orally every 6 hours as needed. Dispense fifteen (15). No refills. Substitution is permissible. -- Lorena Alcala A.R.N.P. Keflex 500 mg: take 1 capsule orally every 6 hours for 7 days. No refills. Substitution is permissible. -- Lorena Alcala A.R.N.P.
--- NOTE | 2016-12-27 23:58 | ED MED RECONCILIATION SUMMARY ---
Patient: GISEL MENDOZA Medication Reconciliation Report [facility] VisitID: [id number] [place] [address] 81y, F Registration Date/Time: 12/27/2016 Weight: 75.7 kg Height/Length: 66 in. BMI: 26.9 ALLERGIES: PCN, Sulfa Drugs The patient's Home Medications are listed below: THE FOLLOWING MEDICATIONS NEED TO BE RECONCILED: Albuterol Sulfate HFA Inhalation Glimepiride Oral Lipitor Oral Lisinopril Oral MetFORMIN HCl Oral Nitrofurantoin Oral Pyridium Oral The source(s) of the original Home Medication information: Not obtained. The following Medications were given to the patient in the Emergency Department: Toradol [IVP] IVP 30 mg, administered: 12/27/2016 6:51:00 PM IV NS IV Fluids bolus 0, then 1000 mL/hr, administered: 12/27/2016 7:52:00 PM Levaquin [IVPB] IVPB bolus 0, then 750 mg 100 mL/hr, administered: 12/27/2016 7:53:00 PM Dilaudid [IVP] IVP 1 mg, administered: 12/27/2016 8:14:00 PM Zofran [IVP] IVP 4 mg, administered: 12/27/2016 8:15:00 PM The following Medications were prescribed to the patient: Zofran 4 mg: Take 1 orally every six hours as needed for nausea/vomiting. Dispense ten (10). No refills. Substitution is permissible. -- Lorena Alcala A.R.N.P. Levaquin 500 mg: take 1 tab orally every day for 7 days. No refills. -- Lorena Alcala A.R.N.P. [place] 5 mg / 325 mg tablets: take 1 to 2 orally every 6 hours as needed for pain. Dispense fifteen (15). No refills. Substitution is permissible. -- Lorena Alcala A.R.N.P. Toradol 10 mg tablets: Take 1 tablet orally every 6 hours as needed. Dispense fifteen (15). No refills. Substitution is permissible. -- Lorena Alcala A.R.N.P. Keflex 500 mg: take 1 capsule orally every 6 hours for 7 days. No refills. Substitution is permissible. -- Lorena Alcala A.R.N.P.
--- NOTE | 2016-12-27 23:58 | ED MAR SUMMARY ---
..... Medication Administration Record [facility] [address] [place] [address] Patient: GISEL MENDOZA Visit ID: [id number] 81y, F Weight: 75.7 kg Height/Length: 66 in BMI: 26.9 ALLERGIES: PCN, Sulfa Drugs Given 18:51 12/27/2016 Raul Sy R.N. Medication Administered: TORADOL [IVP], Dose: 30 mg IVP over 2 minute(s), Site: #1 right wrist. Medication Ordered: Toradol IV 30 mg (NOW). Start 19:52 12/27/2016 Zander Strauss R.N., Stop 21:32 12/27/2016 Ailyn Fitzgerald R.N. Medication Administered: IV NS (SALINE), Dose: IV Fluids, Rate: 1000 mL/hr, Dispensed: 1000 mL bag, Site: #1 right wrist. Medication Ordered: IV NS : initial bolus 1000 mL (1000 mL/hr), then none - (NOW). Start 19:53 12/27/2016 Zander Strauss R.N., Stop 21:32 12/27/2016 Ailny Fitzgerald R.N. Medication Administered: LEVAQUIN [IVPB] (LEVOFLOXACIN), Dose: 750 mg IVPB, Rate: 100 mL/hr, Dispensed: 150 mL bag, Site: #1 right wrist. Medication Ordered: Levaquin IV 750 mg/150 mL (NOW). Given 20:14 12/27/2016 Zander Strauss R.N. Medication Administered: DILAUDID [IVP] (HYDROMORPHONE HCL PF), Dose: 1 mg IVP, Site: #1 right wrist. Medication Ordered: Dilaudid IV 1 mg (HIGH ALERT MEDICATION, NOW). Given 20:15 12/27/2016 Zander Strauss R.N. Medication Administered: ZOFRAN [IVP] (ONDANSETRON HCL), Dose: 4 mg IVP, Site: #1 right wrist. Medication Ordered: Zofran IV 4 mg (NOW).
== END 2016-12-27 21:42 | disposition home or self-care (01) ==
LOC: ED SRH 17:57
DX: N12 Tubulo-interstitial nephritis, not specified as acute or chronic (principal); I10 Essential (primary) hypertension; E78.00 Pure hypercholesterolemia, unspecified; J45.909 Unspecified asthma, uncomplicated; E11.9 Type 2 diabetes mellitus without complications; Z79.84 Long term (current) use of oral hypoglycemic drugs; Z79.2 Long term (current) use of antibiotics; Z79.899 Other long term (current) drug therapy; Z87.891 Personal history of nicotine dependence
CPT/HCPCS: 90004; 90100; 90148; 90469; 91643; 95059